=== PATIENT | male | born 1985 | race Hispanic/Latino ===

== ENCOUNTER 2016-06-28 22:57 | Emergency (ER) | payer MEDICAID ==
[2016-06-28 22:57] VITALS: BMI 44.7
== END 2016-06-29 01:06 | disposition left against medical advice (07) ==
LOC: ED 22:57
DX: Z02.89 Encounter for other administrative examinations (principal)

== ENCOUNTER 2016-08-29 09:45 | Emergency (ER) | payer MEDICAID ==
[2016-08-29 09:45] VITALS: BMI 44.7
[2016-08-29 09:56] VITALS: BP 146/87; PULSE 77; RESP 16; TEMP 97.9; O2SAT 98
--- NOTE | 2016-08-29 10:35 | ED PDOC ---
Arrival/HPI - General Historian: Patient - History of Present Illness Time/Duration: Other (3 days) Quality: Aching Severity Level: 3 - General Chief Complaint: Upper Extremity Problem/Injury Time Seen by Provider: 08/29/16 09:58 - History of Present Illness Narrative History of Present Illness (Text): 08/29/16 10:51 31yr old male presents today with left wrist pain. pt states 3 days ago he was putting things into a machine at work and developed wrist pain. denies numbness , weakness, or tingling in the extremity. no fever/chills. no medications taken for pain. pt states he has a prior hx of wrist fracture. pt c/o pain located over the ulnar styloid. pt denies numbness, weakness, tingling in the extremity. no other complaints. (Clarisa Chau) Past Medical History - Provider Review Nursing Documentation Reviewed: Yes - Travel History Have you recently traveled outside [place] w/in the past 3 mons?: No - Past History Past History: No Previous - Infectious Disease Hx of Infectious Diseases: None - Tetanus Immunization Tetanus Immunization: Unknown - Past Medical History Past Medical History: No Previous - Musculoskeletal/Rheumatological Hx Musculoskeletal Disorders: Yes (R knee sx) Hx Falls: No - Psychiatric Hx Depression: No Hx Substance Use: Yes (marijuana) - Surgical History Hx Orthopedic Surgery: Yes (right knee x 2.) Other/Comment: recent miniscus/acl done in september 2015 - Anesthesia Hx Anesthesia: Yes Hx Anesthesia Reactions: No - Suicidal Assessment Feels Threatened In Home Enviroment: No Family/Social History - Physician Review Nursing Documentation Reviewed: Yes Family/Social History: Unknown Family HX Smoking Status: Light Smoker < 10 Cigarettes Daily Hx Alcohol Use: Yes (occasional) Hx Substance Use: Yes (marijuana) Substance used: "I SMOKE WEED ONCE A MONTH" Hx Substance Use Treatment: No Allergies/Home Meds Allergies/Adverse Reactions: Allergies No Known Allergies Allergy (Verified 08/29/16 09:52) Review of Systems - Review of Systems Constitutional: absent: Fatigue, Fevers Respiratory: absent: SOB, Cough Cardiovascular: absent: Chest Pain, Palpitations Gastrointestinal: absent: Abdominal Pain, Nausea, Vomiting Genitourinary Male: absent: Dysuria Musculoskeletal: Arthralgias Skin: absent: Rash, Pruritis Neurological: absent: Headache, Dizziness Psychiatric: absent: Anxiety, Depression Physical Exam Vital Signs Reviewed: Yes Temperature: Afebrile Blood Pressure: Normal Pulse: Regular Respiratory Rate: Normal Appearance: Positive for: Well-Appearing, Non-Toxic, Comfortable Pain Distress: None Mental Status: Positive for: Alert and Oriented X 3 - Systems Exam Head: Present: Atraumatic Neck: Present: Normal Range of Motion Respiratory/Chest: Present: Clear to Auscultation, Good Air Exchange. No: Respiratory Distress, Accessory Muscle Use Cardiovascular: Present: Regular Rate and Rhythm, Normal S1, S2. No: Murmurs Back: Present: Normal Inspection Upper Extremity: Present: Normal ROM, NORMAL PULSES, Tenderness (left wrist; + ttp over ulnar styloid; no edema, no erythema; no ecchymosis; sensation and distal pulses intact; no snuff box tenderness. ), Neurovascularly Intact, Capillary Refill < 2s. No: Swelling, Erythema, Deformity Neurological: Present: GCS=15, Speech Normal Skin: Present: Warm, Dry, Normal Color. No: Rashes Psychiatric: Present: Alert, Oriented x 3 Medical Decision Making ED Course and Treatment: 08/29/16 10:56 pt c/o left wrist pain x 3 days. toradol given for pain xray left wrist; no fracture velcro wrist splint applied discussed all results in depth with patient; advised f/u with orthopedist within the next 2 days. advised immediate return if symptoms worsen,persist or if new symptoms develop. pt verbalized understanding of d/c instructions and need for immediate f/u. impression ;wrist pain motrin every 6 hours as needed for pain use wrist splint follow up with the orthopedist within the next 2 days return if symptoms worsen,persist or if new symptoms develop. (Clarisa Chau) I was available for consultation during PA evaluation. The chart was reviewed by me, and I agree with disposition. The documented history was done by the physician asphalt paving foreman. The documented physical exam was done by the physician asphalt paving foreman. The documented procedures were done by the physician asphalt paving foreman. ( Emerson Reyes) - RAD Interpretation Radiology Orders: 08/29/16 09:58 WRIST, LEFT 3 VIEWS [RAD] Stat - Medication Orders Current Medication Orders: Discontinued Medications Ketorolac Tromethamine (Toradol) 60 mg IM STAT STA Stop: 08/29/16 09:59 Last Admin: 08/29/16 10:33 Dose: 60 mg Disposition/Present on Arrival - Present on Arrival Any Indicators Present on Arrival: No History of DVT/PE: No History of Uncontrolled Diabetes: No Urinary Catheter: No History of Decub. Ulcer: No History Surgical Site Infection Following: None - Disposition Have Diagnosis and Disposition been Completed?: Yes Disposition Time: 10:50 Patient Plan: Discharge - Disposition Diagnosis: Wrist pain Disposition: HOME/ ROUTINE Condition: GOOD Discharge Instructions (ExitCare): Wrist Injury (ED) Additional Instructions: motrin every 6 hours as needed for pain Use wrist splint follow up with the orthopedist within the next 2 days return if symptoms worsen,persist or if new symptoms develop. Prescriptions: Ibuprofen [Motrin] 600 mg PO Q6H PRN #20 tab PRN Reason: pain/fever reduction Referrals: Yunier Cee MD [Staff Provider] - Follow up with primary [facility] [Outside] - Follow up with primary Forms: WORK NOTE
--- NOTE | 2016-08-29 10:56 | RAD ---
PROCEDURE: Left Wrist Radiographs. HISTORY: wrist pain COMPARISON: None. FINDINGS: BONES: Normal. No fracture. JOINTS: Normal. No dislocation. SOFT TISSUES: There is a smooth calcification adjacent to the ulnar styloid. This probably represents a secondary ossification center. OTHER FINDINGS: None. IMPRESSION: No acute findings
== END 2016-08-29 11:09 | disposition home or self-care (01) ==
LOC: ED 09:45
DX: M25.532 Pain in left wrist (principal)
CPT/HCPCS: 73110; 96372; 99283; J1885

== ENCOUNTER 2017-02-20 12:27 | Emergency (ER) | payer MEDICAID, OTHER ==
[2017-02-20 12:27] VITALS: BMI 44.7
[2017-02-20] MEDS ORDERED: Lactated Ringer's 1,000 ML in Lactated Ringer's 1,000 ML IV STA (12:49)
[2017-02-20] MEDS ORDERED: Iohexol 240 (50 ml) ONE (12:53)
[2017-02-20 13:41] LABS: BASO # 0.04 K/mm3 (0.0-2.0); BASO % 0.5 % (0.0-3.0); EOS # 0.3 (0.0-0.7); EOS % 4.3 % (1.5-5.0); GRAN # 4.65 (1.4-6.5); GRAN % 62.1 % (50.0-68.0); HEMATOCRIT 42.1 % (42.0-52.0); LYMPH # 1.9 (1.2-3.4); LYMPH % 24.9 % (22.0-35.0); MEAN CELL VOLUME 89.6 fl (80.0-105.0); MEAN CORPUSCULAR HEMOGLOBIN 30.2 pg (25.0-35.0); MEAN CORPUSCULAR HGB CONC 33.7 g/dl (31.0-37.0); MEAN PLATELET VOLUME 11.7 fl (7.0-11.0); MONO # 0.6 (0.1-0.6); MONO % 8.2 % (1.0-6.0); RED CELL DISTRIBUTION WIDTH 13.8 % (11.5-14.5); WHITE BLOOD COUNT 7.5 10^3/ul (4.5-11.0)
[2017-02-20 14:26] LABS: LIPASE 13 U/L (23-300)
[2017-02-20 14:47] LABS: AMYLASE < 30 U/L (35-125); BILIRUBIN,TOTAL 0.5 mg/dL (0.2-1.3); BLOOD UREA NITROGEN 13 mg/dL (7-21); CALCIUM 9.2 mg/dL (8.4-10.5); CHLORIDE 108 mmol/L (98-107); GFR AFRICAN-AMERICAN > 60; GLUCOSE,RANDOM 94 mg/dL (70-110); TOTAL PROTEIN 7.2 g/dL (5.8-8.3)
[2017-02-20 14:49] LABS: ALB/GLOB RATIO 1.4 (1.1-1.8); ALKALINE PHOSPHATASE 91 U/L (38-126); ALT/SGPT 42 U/L (7-56); AST/SGOT 20 U/L (17-59); CARBON DIOXIDE 26 mmol/L (21-33)
--- NOTE | 2017-02-20 14:51 | ED PDOC ---
Arrival/HPI - General Chief Complaint: GI Problem Time Seen by Provider: 02/20/17 12:29 Historian: Patient - History of Present Illness Narrative History of Present Illness (Text): 02/20/17 12:46 A 31 year old male presents to the emergency department complaining of left- side abdominal pain and vomiting. Patient reports positive nausea and started experiencing fever today. Notes taking Ibuprofen for symptoms. Patient denies any hematuria, dysuria, bloody stool, or any other complaints. No recent travel. PMD: Dr. Sanchez Past Medical History - Provider Review Nursing Documentation Reviewed: Yes - Past History Past History: No Previous - Infectious Disease Hx of Infectious Diseases: None - Tetanus Immunization Tetanus Immunization: Unknown - Past Medical History Past Medical History: No Previous - Musculoskeletal/Rheumatological Hx Musculoskeletal Disorders: Yes (R knee sx) Hx Falls: No - Psychiatric Hx Depression: No Hx Substance Use: Yes (marijuana) - Surgical History Hx Orthopedic Surgery: Yes (right knee x 2.) Other/Comment: recent miniscus/acl done in september 2015 - Anesthesia Hx Anesthesia: Yes Hx Anesthesia Reactions: No - Suicidal Assessment Feels Threatened In Home Enviroment: No Family/Social History - Physician Review Nursing Documentation Reviewed: Yes Family/Social History: No Known Family HX Smoking Status: Light Smoker < 10 Cigarettes Daily Hx Alcohol Use: Yes (occasional) Hx Substance Use: Yes (marijuana) Substance used: "I SMOKE WEED ONCE A MONTH" Hx Substance Use Treatment: No Allergies/Home Meds Allergies/Adverse Reactions: Allergies No Known Allergies Allergy (Verified 02/20/17 12:31) Home Medications: Home Meds Medication Instructions Recorded Confirmed No Known Home Med 02/20/17 02/20/17 Review of Systems - Physician Review All systems were reviewed & negative as marked: Yes - Review of Systems Constitutional: Fevers (started today) Gastrointestinal: Abdominal Pain (left side), Nausea, Vomiting. absent: Stool Changes (no bloody stool) Genitourinary Male: absent: Dysuria, Hematuria Physical Exam Vital Signs Reviewed: Yes Vital Signs Temp Pulse Resp BP Pulse Ox 02/20/17 17:40 98.8 F 72 20 136/84 99 02/20/17 17:05 69 18 128/69 98 02/20/17 16:00 75 18 135/71 98 02/20/17 13:47 78 18 138/78 98 02/20/17 12:38 97.7 F 81 18 143/81 97 02/20/17 12:32 97.7 F 81 19 143/81 96 Temperature: Afebrile Blood Pressure: Normal Pulse: Regular Respiratory Rate: Normal Appearance: Positive for: Other (obese) Pain Distress: None Mental Status: Positive for: Alert and Oriented X 3 - Systems Exam Head: Present: Atraumatic, Normocephalic Pupils: Present: PERRL Extroacular Muscles: Present: EOMI Conjunctiva: Present: Normal Mouth: Present: Moist Mucous Membranes Neck: Present: Normal Range of Motion Respiratory/Chest: Present: Clear to Auscultation, Good Air Exchange. No: Respiratory Distress, Accessory Muscle Use Cardiovascular: Present: Regular Rate and Rhythm, Normal S1, S2. No: Murmurs Abdomen: Present: Other (left sided abdominal pain) Back: Present: Normal Inspection Upper Extremity: Present: Normal Inspection. No: Cyanosis, Edema Lower Extremity: Present: Normal Inspection. No: Edema Neurological: Present: GCS=15, CN II-XII Intact, Speech Normal Skin: Present: Warm, Dry, Normal Color. No: Rashes Psychiatric: Present: Alert, Oriented x 3, Normal Insight, Normal Concentration Medical Decision Making ED Course and Treatment: 02/20/17 12:49 Impression: 31 year old male with left-side abdominal pain, nausea, and vomiting. Physical exam shows patient appears obese and has left-side abdominal pain. Plan: -- Abd/Pelvis CT -- Labs -- Pepcid -- Lactated Ringer's -- Zofran -- Urinalysis -- Urine Culture -- Reassess and disposition Prior Visits: Notes and results from previous visits were reviewed. Patient was last seen in the emergency department on 08/29/2016 for left wrist pain. Patient was d/c home. Progress Notes: - Lab Interpretations Lab Results: 02/20/17 13:30 02/20/17 13:30 Lab Results 02/20/17 15:00: Urine Color Yellow, Urine Appearance Clear, Urine pH 6.0, Ur Specific [place] 1.020, Urine Protein Negative, Urine Glucose (UA) Negative, Urine Ketones Negative, Urine Blood Negative, Urine Nitrate Negative, Urine Bilirubin Negative, Urine Urobilinogen 0.2, Ur Leukocyte Esterase Negative 02/20/17 13:30: Sodium 144, Potassium 3.9, Chloride 108 H, Carbon Dioxide 26, Anion Gap 14, BUN 13, Creatinine 0.7 L, Est GFR ( Amer) > 60, Est GFR ( Non-Af Amer) > 60, Random Glucose 94, Calcium 9.2, Total Bilirubin 0.5, AST 20, ALT 42, Alkaline Phosphatase 91, Total Protein 7.2, Albumin 4.2, Globulin 3.0, Albumin/Globulin Ratio 1.4, Amylase < 30 L, Lipase 13 L 02/20/17 13:30: WBC 7.5, RBC 4.70, Hgb 14.2, Hct 42.1, MCV 89.6, MCH 30.2, MCHC 33.7, RDW 13.8, Plt Count 176, MPV 11.7 H, Gran % 62.1, Lymph % (Auto) 24.9, [place] % (Auto) 8.2 H, Eos % (Auto) 4.3, Baso % (Auto) 0.5, Gran # 4.65, Lymph # 1.9, Greene # 0.6, Eos # 0.3, Baso # 0.04 I have reviewed the lab results: Yes - RAD Interpretation Radiology Orders: 02/20/17 12:49 ABD PELVIS PO & IV CONTRAST [CT] Stat - Medication Orders Current Medication Orders: Discontinued Medications Famotidine (Pepcid) 20 mg IVP STAT STA Stop: 02/20/17 12:50 Last Admin: 02/20/17 13:30 Dose: 20 mg IVP Administration Document 02/20/17 13:30 [place] (Rec: 02/20/17 13:30 [place] [id number]) Charges for Administration # of IVP Administrations 1 Lactated Ringer's 1,000 ml/ (Lactated Ringer's) 2,000 mls @ 1,000 mls/hr IV BOLUS STA Stop: 02/20/17 14:18 Last Admin: 02/20/17 13:30 Dose: 1,000 mls/hr eMAR Start Stop Document 02/20/17 13:30 [place] (Rec: 02/20/17 13:30 [place] [id number]) Intravenous Solution Start Date 02/20/17 Start Time 13:30 Ondansetron HCl (Zofran Inj) 4 mg IVP STAT STA Stop: 02/20/17 12:50 Last Admin: 11/29/17 13:30 Dose: 4 mg IVP Administration Document 02/20/17 13:30 [place] (Rec: 02/20/17 13:30 [id number] Charges for Administration # of IVP Administrations 1 - Scribe Statement The provider has reviewed the documentation as recorded by the Jane Wing Provider Nasraibe Attestation: All medical record entries made by the Scribe were at my direction and personally dictated by me. I have reviewed the chart and agree that the record accurately reflects my personal performance of the history, physical exam, medical decision making, and the department course for this patient. I have also personally directed, reviewed, and agree with the discharge instructions and disposition. Disposition/Present on Arrival - Present on Arrival Any Indicators Present on Arrival: No History of DVT/PE: No History of Uncontrolled Diabetes: No Urinary Catheter: No History of Decub. Ulcer: No History Surgical Site Infection Following: None - Disposition Have Diagnosis and Disposition been Completed?: Yes Diagnosis: Abdominal pain Disposition: HOME/ ROUTINE Disposition Time: 17:30 Condition: GOOD Discharge Instructions (ExitCare): Abdominal Pain (ED) Additional Instructions: Thank you for letting us take care of you today. The emergency medical care you received today was directed at your acute symptoms. If you were prescribed any medication, please fill it and take as directed. It may take several days for your symptoms to resolve. Return to the Emergency Department if your symptoms worsen, do not improve, or if you have any other problems. Please contact your doctor or call one of the physicians/clinics you have been referred to that are listed on the Patient Visit Information form that is included in your discharge packet. Bring any paperwork you were given at discharge with you along with any medications you are taking to your follow up visit. Our treatment cannot replace ongoing medical care by a primary care provider (PCP) outside of the emergency department. Thank you for allowing the [facility] team to be part of your care today. Follow up with your doctor or the clinic in 2-3 days for re-evaluation and further management. Referrals: [facility] [Outside] - Follow up with primary [facility] [Outside] - Follow up with primary Forms: [employer] (Afghan)
[2017-02-20 15:12] LABS: URINE BILIRUBIN NEGATIVE (NEGATIVE); URINE BLOOD NEGATIVE (NEGATIVE); URINE GLUCOSE (UA) NEGATIVE (NEGATIVE); URINE KETONE NEGATIVE (NEGATIVE); URINE LEUKOCYTE ESTERASE NEGATIVE Leu/uL (NEGATIVE); URINE PROTEIN NEGATIVE mg/dL (<30 mg/dL); URINE UROBILINOGEN 0.2 E.U./dL (<1 E.U./dL)
[2017-02-20 15:19] LABS: URINE APPEARANCE CLEAR (CLEAR); URINE COLOR YELLOW (YELLOW)
[2017-02-20] MEDS ORDERED: Iohexol 350 MG/100 ML VIAL ONE (15:38)
[2017-02-20 16:08] LABS: POTASSIUM 3.9 mmol/L (3.6-5.0); SODIUM 144 mmol/L (132-148)
--- NOTE | 2017-02-20 17:33 | CT ---
PROCEDURE: CT Abdomen and Pelvis with contrast HISTORY: left-sided abdominal pain COMPARISON: None. TECHNIQUE: CT scan of the abdomen and pelvis was performed after intravenous administration of contrast. Oral contrast was administered. Coronal and sagittal reformatted images were obtained. Contrast dose: 100 mL Omnipaque 350 Radiation dose: Total exam DLP = 1925.94 mGy-cm. This CT exam was performed using one or more of the following dose reduction techniques: Automated exposure control, adjustment of the mA and/or kV according to patient size, and/or use of iterative reconstruction technique. FINDINGS: LOWER THORAX: The lung bases are clear. LIVER: The liver is normal in size and there is diffuse fatty infiltration. No gross lesion or ductal dilatation. GALLBLADDER AND BILE DUCTS: There are no calcified gallstones. PANCREAS: Normal in size with homogeneous enhancement. No gross lesion or ductal dilatation. SPLEEN: There is borderline splenomegaly. There are innumerable subcentimeter low-attenuation lesions in the spleen. ADRENALS: No discrete nodules. KIDNEYS AND URETERS: Normal in size with homogeneous enhancement. No hydronephrosis. No solid mass. VASCULATURE: No aortic aneurysm. BOWEL: The small bowel loops are normal in caliber. The colon is unremarkable. No bowel dilatation or obstruction. APPENDIX: Normal appendix. PERITONEUM: No free fluid. No free air. LYMPH NODES: No enlarged lymph nodes. BLADDER: Partially decompressed. Urachal remnant is identified. REPRODUCTIVE: Unremarkable. BONES: No acute fracture. Within normal limits for the patient's age. OTHER FINDINGS: None. IMPRESSION: Borderline splenomegaly. Innumerable subcentimeter lesions in the spleen, nonspecific. The differential considerations include abscesses, granulomatous disease, lymphoma and metastasis.
[2017-02-20 17:41] VITALS: BP 136/84; PULSE 72; RESP 20; TEMP 98.8; O2SAT 99
== END 2017-02-20 17:56 | disposition home or self-care (01) ==
LOC: ED 12:27
DX: R10.9 Unspecified abdominal pain (principal); F17.210 Nicotine dependence, cigarettes, uncomplicated
CPT/HCPCS: 74177; 80053; 81003; 82150; 83690; 85025; 87086; 96374; 96375; 99284; J2405; J7120; Q9966; Q9967

== ENCOUNTER 2017-08-23 05:35 | Inpatient (IN) | payer MEDICAID, OTHER ==
[2017-08-23] MEDS ORDERED: Piperacillin/Tazobact 3.375 gm 100 ML IVPB STA (06:32)
[2017-08-23] MEDS ORDERED: Sodium Chloride 0.9% 1,000 ML IV STA (06:32)
[2017-08-23] MEDS ORDERED: Vancomycin 1gm in NS 250ml 1 GM/250 ML BAG IVPB STA (06:32)
--- NOTE | 2017-08-23 06:36 | ED PDOC ---
Arrival/HPI - General Chief Complaint: Lower Extremity Problem/Injury Time Seen by Provider: 08/23/17 05:54 Historian: Patient - History of Present Illness Narrative History of Present Illness (Text): 08/23/17 06:29 32 year old male, with no significant past medical history, presents to the emergency department complaining of worsening cellulites to the left knee radiates down to the ankle. Patient reports he was in the [facility] stands alone ER and was given antibiotics with no relief. Patient has a drawn lacey around this cellulites wound which is the same size, but is more red and painful. Patient does not know the name of the antibiotics. Patient states he feels sick and reports nausea, but denies any fever, chills, chest pain, shortness of breath, vomiting, diarrhea, urinary symptoms, back pain, neck pain, headache, dizziness , or any other complaints. PMD: Dr. Rothman Symptom Onset: Gradual Symptom Course: Worsening Activities at Onset: Light Context: Home Past Medical History - Provider Review Nursing Documentation Reviewed: Yes - Past History Past History: No Previous - Infectious Disease Hx of Infectious Diseases: None - Tetanus Immunization Tetanus Immunization: Unknown - Past Medical History Past Medical History: No Previous - Musculoskeletal/Rheumatological Hx Musculoskeletal Disorders: Yes (R knee sx) Hx Falls: No - Psychiatric Hx Depression: No Hx Substance Use: Yes (marijuana) - Surgical History Hx Orthopedic Surgery: Yes (hien acl knees) Other/Comment: recent miniscus/acl done in september 2015 - Anesthesia Hx Anesthesia: Yes Hx Anesthesia Reactions: No - Suicidal Assessment Feels Threatened In Home Enviroment: No Family/Social History - Physician Review Nursing Documentation Reviewed: Yes Family/Social History: No Known Family HX Smoking Status: Light Smoker < 10 Cigarettes Daily Hx Alcohol Use: Yes (occasional) Frequency of alcohol use: Socially Hx Substance Use: Yes (marijuana) Substance used: "I SMOKE WEED ONCE A MONTH" Hx Substance Use Treatment: No Allergies/Home Meds Allergies/Adverse Reactions: Allergies No Known Allergies Allergy (Verified 08/23/17 06:14) Home Medications: Home Meds Medication Instructions Recorded Confirmed Unobtainable 08/23/17 08/23/17 Review of Systems - Physician Review All systems were reviewed & negative as marked: Yes - Review of Systems Constitutional: absent: Fevers, Other (Chills) Respiratory: absent: SOB Cardiovascular: absent: Chest Pain Gastrointestinal: Nausea. absent: Abdominal Pain, Diarrhea, Vomiting Genitourinary Male: absent: Dysuria, Frequency, Hematuria Musculoskeletal: absent: Back Pain, Neck Pain Skin: Cellulitis (left knee down to ankle) Neurological: absent: Headache, Dizziness Physical Exam Vital Signs Reviewed: Yes Vital Signs Temp Pulse Resp BP Pulse Ox 08/23/17 06:16 99.6 F 81 18 137/76 97 Temperature: Afebrile Blood Pressure: Normal Pulse: Regular Respiratory Rate: Normal Appearance: Positive for: Well-Appearing, Non-Toxic, Comfortable Pain Distress: None Mental Status: Positive for: Alert and Oriented X 3 - Systems Exam Head: Present: Atraumatic, Normocephalic Pupils: Present: PERRL Extroacular Muscles: Present: EOMI Conjunctiva: Present: Normal Mouth: Present: Moist Mucous Membranes Neck: Present: Normal Range of Motion Respiratory/Chest: Present: Clear to Auscultation, Good Air Exchange. No: Respiratory Distress, Accessory Muscle Use Cardiovascular: Present: Regular Rate and Rhythm, Normal S1, S2. No: Murmurs Abdomen: No: Tenderness, Distention, Peritoneal Signs Back: Present: Normal Inspection Upper Extremity: Present: Normal Inspection. No: Cyanosis, Edema Lower Extremity: Present: Swelling, Erythema, Other (cellulites from knee to ankle anteriorly. Foot is spared. Warm, red, and swollen.). No: Edema Neurological: Present: GCS=15, CN II-XII Intact, Speech Normal Skin: Present: Warm, Dry, Normal Color. No: Rashes Psychiatric: Present: Alert, Oriented x 3, Normal Insight, Normal Concentration Medical Decision Making ED Course and Treatment: 08/23/17 06:39 Impression: 32 year old male presents complaining of worsening redness and pain from cellulites to the left knee to ankle anteriorly. Foot is spared. Plan: -- VBG -- Labs -- IV Fluids -- Blood Culture, Urine Culture -- Urinalysis -- Reassess and disposition Progress Notes: 08/23/17 07:[address] Rothman who is aware and agrees with the plan. Accepts patient into his service. - Lab Interpretations I have reviewed the lab results: Yes - Medication Orders Current Medication Orders: Sodium Chloride (Sodium Chloride 0.9%) 1,000 mls @ 999 mls/hr IV .Q1H1M STA Stop: 08/23/17 07:32 Vancomycin HCl (Vancomycin 1gm) 1 gm in 250 mls @ 167 mls/hr IVPB STAT STA PRN Reason: Protocol Stop: 08/23/17 08:01 Discontinued Medications Piperacillin Sod/Tazobactam Sod (Zosyn 3.375 In Ns 100ml) 100 mls @ 200 mls/hr IVPB STAT STA PRN Reason: Protocol Stop: 08/23/17 07:01 - Scribe Statement The provider has reviewed the documentation as recorded by the Jane Alexander Provider Scribe Attestation: All medical record entries made by the Scribjustin were at my direction and personally dictated by me. I have reviewed the chart and agree that the record accurately reflects my personal performance of the history, physical exam, medical decision making, and the department course for this patient. I have also personally directed, reviewed, and agree with the discharge instructions and disposition. Disposition/Present on Arrival - Present on Arrival History of DVT/PE: No History of Uncontrolled Diabetes: No Urinary Catheter: No History of Decub. Ulcer: No History Surgical Site Infection Following: None - Disposition Forms: [employer] (Swazi)
[2017-08-23 07:11] LABS: BASO # 0.03 K/mm3 (0.0-2.0); BASO % 0.2 % (0.0-3.0); EOS % 0.1 % (1.5-5.0); GRAN # 9.56 (1.4-6.5); GRAN % 76.5 % (50.0-68.0); HEMOGLOBIN 13.5 g/dL (14.0-18.0); LYMPH # 1.7 (1.2-3.4); LYMPH % 13.5 % (22.0-35.0); MEAN CELL VOLUME 87.3 fl (80.0-105.0); MEAN CORPUSCULAR HEMOGLOBIN 30.1 pg (25.0-35.0); MEAN CORPUSCULAR HGB CONC 34.5 g/dl (31.0-37.0); MEAN PLATELET VOLUME 11.6 fl (7.0-11.0); MONO # 1.2 (0.1-0.6); MONO % 9.7 % (1.0-6.0); RBC 4.48 10^6/uL (3.5-6.1); RED CELL DISTRIBUTION WIDTH 13.7 % (11.5-14.5); WHITE BLOOD COUNT 12.5 10^3/ul (4.5-11.0)
[2017-08-23 07:26] LABS: ALB/GLOB RATIO 1.3 (1.1-1.8); ALBUMIN 4.2 g/dL (3.0-4.8); ALT/SGPT 29 U/L (7-56); AST/SGOT 17 U/L (17-59); BLOOD UREA NITROGEN 10 mg/dL (7-21); CALCIUM 9.2 mg/dL (8.4-10.5); GFR AFRICAN-AMERICAN > 60; GFR NON-AFRICAN AMERICAN > 60; INR 1.3 (0.93-1.08)
[2017-08-23 07:40] LABS: VENOUS BLOOD GAS BASE EXCESS 0.3 mmol/L (0.0-2.0); VENOUS BLOOD GAS PO2 77 mm/Hg (30-55); VENOUS BLOOD PH 7.39 (7.32-7.43)
--- NOTE | 2017-08-23 09:14 | ED PDOC ---
ED Additional Note - Physician Additional Note Physician Additional Note: 8:45am - Dr Rothman spoke to me regarding patient Mr Reid Brock; Dr Rothman states Dr Olson had mistakenly admitted patient to his service wrongly and would like pt to be removed from his admission list; pt should be admitted under the hospitalists 8:55am - I spoke to hospitalists no call, Dr Jenkins, made aware, agrees with admission I did not evaluate patient since patient had already been out of the emergency department after my arrival pt was never signed out to me as well from previous emergency department/ overnight attending
--- NOTE | 2017-08-23 11:17 | CP.PCM.HP ---
<Rio Ramos - Last Filed: 08/23/17 14:06> History of Present Illness - History of Present Illness History of Present Illness: 32 year old male with PMH of cellulitis of the left leg in 2016 complaining of swelling and redness on the anterior aspect of left leg. Patient states he woke up yesterday and noticed the area of redness and warmth. Patient complained of having nausea, vomiting and chills but denied having fevers. He went to the [facility] urgent care center yesterday and was discharged with a prescription for keflex. Patient states that several days ago he visited a spa and used the jacuzzi. He realized that the last time he had similar symptoms and cellulitis it was also after visiting the same spa. He denies any animal bites or trauma to the leg. He also stated he had a headache this morning which has resolved. Patient denies any chest pain, shortness of breath, abdominal pain, diarrhea, dysuria, or any other complaints at this time. PMH: cellulitis PSH: ACL repair Allergies: denies Family: non contributory Social: one cigarrette every 2 months, one drink a month of alcohol, and once a month use of marijuana, denies any IV drug use Meds: none Present on Admission - Present on Admission Any Indicators Present on Admission: No Review of Systems - Constitutional Constitutional: Fatigue. absent: Chills, Fever, Weakness - EENT Eyes: absent: Change in Vision Nose/Mouth/Throat: absent: Nasal Congestion, Nasal Discharge - Cardiovascular Cardiovascular: absent: Chest Pain, Dyspnea - Respiratory Respiratory: absent: Cough - Gastrointestinal Gastrointestinal: absent: Abdominal Pain, Nausea, Vomiting - Integumentary Integumentary: Rash, Swelling - Neurological Neurological: Headaches. absent: Dizziness, Numbness, Vertigo, Weakness Past Patient History - Infectious Disease Hx of Infectious Diseases: None - Tetanus Immunizations Tetanus Immunization: Unknown - Past Social History Smoking Status: Light Smoker < 10 Cigarettes Daily - MUSCULOSKELETAL/RHEUMATOLOGICAL Hx Musculoskeletal Disorders: Yes (R knee sx) Hx Falls: No - PSYCHIATRIC Hx Depression: No Hx Substance Use: Yes (marijuana) - SURGICAL HISTORY Hx Orthopedic Surgery: Yes (hien acl knees) Other/Comment: recent miniscus/acl done in september 2015 - ANESTHESIA Hx Anesthesia: Yes Hx Anesthesia Reactions: No Meds Allergies/Adverse Reactions: Allergies Allergy/AdvReac Type Severity Reaction Status Date / Time No Known Allergies Allergy Verified 08/23/17 06:14 Physical Exam - Constitutional Appears: Well, Non-toxic, No Acute Distress - Head Exam Head Exam: ATRAUMATIC, NORMAL INSPECTION, NORMOCEPHALIC - Eye Exam Eye Exam: EOMI, Normal appearance, PERRL - ENT Exam ENT Exam: Mucous Membranes Moist - Respiratory Exam Respiratory Exam: Clear to Auscultation Bilateral, NORMAL BREATHING PATTERN - Cardiovascular Exam Cardiovascular Exam: REGULAR RHYTHM, +S1, +S2 - GI/Abdominal Exam GI & Abdominal Exam: Normal Bowel Sounds, Soft. absent: Tenderness - Extremities Exam Extremities exam: Positive for: tenderness, pedal pulses present. Negative for : pedal edema Additional comments: large area of warmth an erythema on anterior aspect of left lower leg - Neurological Exam Neurological exam: Alert, Oriented x3 - Skin Skin Exam: Rash, Warm Results - Vital Signs Recent Vital Signs: Last Vital Signs Temp 98.2 F 08/23/17 08:06 Pulse 88 08/23/17 08:06 Resp 18 08/23/17 08:06 BP 138/86 08/23/17 08:06 Pulse Ox 100 08/23/17 08:06 - Labs Result Diagrams: 08/23/17 06:54 08/23/17 06:54 Labs: Laboratory Results - last 24 hr 08/23/17 08/23/17 08/23/17 06:54 06:54 06:54 WBC 12.5 H D RBC 4.48 Hgb 13.5 L Hct 39.1 L MCV 87.3 MCH 30.1 MCHC 34.5 RDW 13.7 Plt Count 167 MPV 11.6 H Gran % 76.5 H Lymph % (Auto) 13.5 L [place] % (Auto) 9.7 H Eos % (Auto) 0.1 L Baso % (Auto) 0.2 Gran # 9.56 H Lymph # (Auto) 1.7 [place] # (Auto) 1.2 H Eos # (Auto) 0.0 Baso # (Auto) 0.03 PT 15.0 H INR 1.30 H pO2 VBG pH VBG pCO2 VBG HCO3 VBG Total CO2 VBG O2 Sat (Calc) VBG Base Excess VBG Potassium Glucose Lactate FiO2 Sodium 142 Potassium 3.6 Chloride 105 Carbon Dioxide 24 Anion Gap 17 BUN 10 Creatinine 0.7 L Est GFR ( Amer) > 60 Est GFR (Non-Af Amer) > 60 Random Glucose 108 Calcium 9.2 Total Bilirubin 0.4 AST 17 ALT 29 Alkaline Phosphatase 87 Total Protein 7.3 Albumin 4.2 Globulin 3.1 Albumin/Globulin Ratio 1.3 Venous Blood Potassium 08/23/17 07:30 WBC RBC Hgb Hct MCV MCH MCHC RDW Plt Count MPV Gran % Lymph % (Auto) [place] % (Auto) Eos % (Auto) Baso % (Auto) Gran # Lymph # (Auto) [place] # (Auto) Eos # (Auto) Baso # (Auto) PT INR pO2 77 H VBG pH 7.39 VBG pCO2 42.0 VBG HCO3 25.4 VBG Total CO2 26.7 VBG O2 Sat (Calc) 97.7 H VBG Base Excess 0.3 VBG Potassium 3.3 L Glucose 109 Lactate 0.6 L FiO2 21.0 Sodium 138.0 Potassium Chloride 108.0 H Carbon Dioxide Anion Gap BUN Creatinine Est GFR ( Amer) Est GFR (Non-Af Amer) Random Glucose Calcium Total Bilirubin AST ALT Alkaline Phosphatase Total Protein Albumin Globulin Albumin/Globulin Ratio Venous Blood Potassium 3.3 L Assessment & Plan - Assessment and Plan (Free Text) Assessment: 32 year old male with PMH of cellulitis of the left leg in 2016 complaining of swelling and redness on the anterior aspect of left leg. Patient is being treated for cellulitis of the left lower leg. Plan: 1. Cellulitis Left Lower Extremity -leukocytosis -afebrile -blood cultures, urine cultures pending -ID consulted, follow recs -Cefepime and Linzolid -HIV test pending Prophylaxis -Heparin SC -protonix <Maira Jenkins - Last Filed: 08/23/17 15:44> Results - Vital Signs Recent Vital Signs: Last Vital Signs Temp 98.2 F 08/23/17 14:00 Pulse 68 08/23/17 14:00 Resp 18 08/23/17 14:00 BP 132/91 H 08/23/17 14:00 Pulse Ox 100 08/23/17 14:00 - Labs Result Diagrams: 08/23/17 06:54 08/23/17 06:54 Labs: Laboratory Results - last 24 hr 06/01/18 06/01/18 06/01/18 06:54 06:54 06:54 WBC 12.5 H D RBC 4.48 Hgb 13.5 L Hct 39.1 L MCV 87.3 MCH 30.1 MCHC 34.5 RDW 13.7 Plt Count 167 MPV 11.6 H Gran % 76.5 H Lymph % (Auto) 13.5 L [place] % (Auto) 9.7 H Eos % (Auto) 0.1 L Baso % (Auto) 0.2 Gran # 9.56 H Lymph # (Auto) 1.7 [place] # (Auto) 1.2 H Eos # (Auto) 0.0 Baso # (Auto) 0.03 PT 15.0 H INR 1.30 H pO2 VBG pH VBG pCO2 VBG HCO3 VBG Total CO2 VBG O2 Sat (Calc) VBG Base Excess VBG Potassium Glucose Lactate FiO2 Sodium 142 Potassium 3.6 Chloride 105 Carbon Dioxide 24 Anion Gap 17 BUN 10 Creatinine 0.7 L Est GFR ( Amer) > 60 Est GFR (Non-Af Amer) > 60 Random Glucose 108 Calcium 9.2 Total Bilirubin 0.4 AST 17 ALT 29 Alkaline Phosphatase 87 Total Protein 7.3 Albumin 4.2 Globulin 3.1 Albumin/Globulin Ratio 1.3 Venous Blood Potassium 08/23/17 07:30 WBC RBC Hgb Hct MCV MCH MCHC RDW Plt Count MPV Gran % Lymph % (Auto) [place] % (Auto) Eos % (Auto) Baso % (Auto) Gran # Lymph # (Auto) [place] # (Auto) Eos # (Auto) Baso # (Auto) PT INR pO2 77 H VBG pH 7.39 VBG pCO2 42.0 VBG HCO3 25.4 VBG Total CO2 26.7 VBG O2 Sat (Calc) 97.7 H VBG Base Excess 0.3 VBG Potassium 3.3 L Glucose 109 Lactate 0.6 L FiO2 21.0 Sodium 138.0 Potassium Chloride 108.0 H Carbon Dioxide Anion Gap BUN Creatinine Est GFR ( Amer) Est GFR (Non-Af Amer) Random Glucose Calcium Total Bilirubin AST ALT Alkaline Phosphatase Total Protein Albumin Globulin Albumin/Globulin Ratio Venous Blood Potassium 3.3 L Attending/Attestation - Attestation I have personally seen and examined this patient.: Yes I have fully participated in the care of the patient.: Yes I have reviewed all pertinent clinical information: Yes Notes (Text): 08/23/17 15:42 Medical record note made by the resident after discussion with my direction and input after the patient was personally seen and examined by me. I have reviewed the chart and agree that the record accurately reflects by personal performance of the history, physical exam, data review, and medical decision-making, in the course for the patient. I have also personally directed the plan of care. 32 year old male with recurrent cellulitis of the left leg on IV cefepime and Zyvo as per ID, We will follow up cultures. Management plan was discussed in detail with patient. Education was provided.
[2017-08-23 11:31] VITALS: BMI 41.3
[2017-08-23] MEDS: Linezolid 600 mg in D5W 300 ml 600 MG/300 ML BAG IVPB SCH ×2 (11:32→23:30)
--- NOTE | 2017-08-23 13:51 | CP.PCM.CON ---
History of Present Illness - History of Present Illness History of Present Illness: 32 year old male with PMH of cellulitis of the left leg in 2016, morbid obesity with BMI 41 came in to [facility] complaining of left leg swelling on the anterior portion which started about 2 days ago. He was also having nausea and vomiting, generalized weakness but denies having fevers. He went to the [facility] urgent care center yesterday morning and was given Keflex. About 3-4 days ago the patient visited a spa and used the jacuzzi there and soaked in it. As per patient, his cellulitis in 2016 also happened several days after visiting the same spa. He denies animal contacts, no specific trauma to the left leg, no headache or dizziness, no abdominal pain, no diarrhea, no dysuria, no cough or colds. Infectious Diseases consult is requested to further evaluate and manage. Review of Systems - Review of Systems All systems: reviewed and no additional remarkable complaints except (as per HPI ) Past Patient History - Infectious Disease Hx of Infectious Diseases: None - Tetanus Immunizations Tetanus Immunization: Unknown - Past Social History Smoking Status: Light Smoker < 10 Cigarettes Daily - MUSCULOSKELETAL/RHEUMATOLOGICAL Hx Musculoskeletal Disorders: Yes (R knee sx) Hx Falls: No - PSYCHIATRIC Hx Depression: No Hx Substance Use: Yes (marijuana) - SURGICAL HISTORY Hx Orthopedic Surgery: Yes (hien acl knees) Other/Comment: recent miniscus/acl done in september 2015 - ANESTHESIA Hx Anesthesia: Yes Hx Anesthesia Reactions: No Meds Allergies/Adverse Reactions: Allergies Allergy/AdvReac Type Severity Reaction Status Date / Time No Known Allergies Allergy Verified 08/23/17 06:14 - Medications Medications: Current Medications Linezolid (Zyvox 600mg/300ml D5w) 600 mg in 300 mls @ 200 mls/hr IVPB Q12 AHMET PRN Reason: Protocol Stop: 08/30/17 10:01 Physical Exam - Constitutional Appears: Non-toxic - Head Exam Head Exam: NORMAL INSPECTION - ENT Exam ENT Exam: Mucous Membranes Moist - Neck Exam Neck exam: Negative for: Lymphadenopathy, Meningismus - Respiratory Exam Respiratory Exam: absent: Rales, Rhonchi - Cardiovascular Exam Cardiovascular Exam: +S1, +S2 - GI/Abdominal Exam GI & Abdominal Exam: Soft. absent: Tenderness - Extremities Exam Additional comments: left leg anteriorly with redness and swelling, with some tenderness, no streaking noted towards the groin, no fluctuance Results - Vital Signs Recent Vital Signs: Last Vital Signs Temp 98.2 F 08/23/17 08:06 Pulse 88 08/23/17 08:06 Resp 18 08/23/17 08:06 BP 138/86 08/23/17 08:06 Pulse Ox 100 08/23/17 08:06 - Labs Result Diagrams: 08/23/17 06:54 08/23/17 06:54 Labs: Laboratory Results - last 24 hr 08/23/17 08/23/17 08/23/17 06:54 06:54 06:54 WBC 12.5 H D RBC 4.48 Hgb 13.5 L Hct 39.1 L MCV 87.3 MCH 30.1 MCHC 34.5 RDW 13.7 Plt Count 167 MPV 11.6 H Gran % 76.5 H Lymph % (Auto) 13.5 L [place] % (Auto) 9.7 H Eos % (Auto) 0.1 L Baso % (Auto) 0.2 Gran # 9.56 H Lymph # (Auto) 1.7 [place] # (Auto) 1.2 H Eos # (Auto) 0.0 Baso # (Auto) 0.03 PT 15.0 H INR 1.30 H pO2 VBG pH VBG pCO2 VBG HCO3 VBG Total CO2 VBG O2 Sat (Calc) VBG Base Excess VBG Potassium Glucose Lactate FiO2 Sodium 142 Potassium 3.6 Chloride 105 Carbon Dioxide 24 Anion Gap 17 BUN 10 Creatinine 0.7 L Est GFR ( Amer) > 60 Est GFR (Non-Af Amer) > 60 Random Glucose 108 Calcium 9.2 Total Bilirubin 0.4 AST 17 ALT 29 Alkaline Phosphatase 87 Total Protein 7.3 Albumin 4.2 Globulin 3.1 Albumin/Globulin Ratio 1.3 Venous Blood Potassium 08/23/17 07:30 WBC RBC Hgb Hct MCV MCH MCHC RDW Plt Count MPV Gran % Lymph % (Auto) [place] % (Auto) Eos % (Auto) Baso % (Auto) Gran # Lymph # (Auto) [place] # (Auto) Eos # (Auto) Baso # (Auto) PT INR pO2 77 H VBG pH 7.39 VBG pCO2 42.0 VBG HCO3 25.4 VBG Total CO2 26.7 VBG O2 Sat (Calc) 97.7 H VBG Base Excess 0.3 VBG Potassium 3.3 L Glucose 109 Lactate 0.6 L FiO2 21.0 Sodium 138.0 Potassium Chloride 108.0 H Carbon Dioxide Anion Gap BUN Creatinine Est GFR ( Amer) Est GFR (Non-Af Amer) Random Glucose Calcium Total Bilirubin AST ALT Alkaline Phosphatase Total Protein Albumin Globulin Albumin/Globulin Ratio Venous Blood Potassium 3.3 L Assessment & Plan - Assessment and Plan (Free Text) Plan: Assessment Sepsis due to left leg non-purulent cellulitis in a patient exposed to a hot tub cellulitis of the left leg in 2015 morbid obesity with BMI 41 Plan Started Zyvox and Cefepime because of the hot tub exposure; follow up blood cx will check HIV test will monitor clinical response
[2017-08-23] MEDS: Cefepime 1gm in NS 100ml 1 GM/100 ML BAG IVPB SCH ×2 (14:22→21:25)
[2017-08-23 23:07] VITALS: RESP 20
[2017-08-24] MEDS: Cefepime 1gm in NS 100ml 1 GM/100 ML BAG IVPB SCH ×2 (05:57→14:09)
[2017-08-24] MEDS ORDERED: Pantoprazole 40 mg EC Tab PO SCH (06:00)
[2017-08-24 07:35] LABS: BASO # 0.04 K/mm3 (0.0-2.0); BASO % 0.4 % (0.0-3.0); EOS # 0.2 (0.0-0.7); EOS % 2.5 % (1.5-5.0); GRAN # 6.68 (1.4-6.5); GRAN % 71.3 % (50.0-68.0); HEMOGLOBIN 13.8 g/dL (14.0-18.0); LYMPH # 1.6 (1.2-3.4); LYMPH % 17.3 % (22.0-35.0); MEAN CORPUSCULAR HEMOGLOBIN 30.6 pg (25.0-35.0); MEAN CORPUSCULAR HGB CONC 34.8 g/dl (31.0-37.0); MEAN PLATELET VOLUME 11.5 fl (7.0-11.0); MONO # 0.8 (0.1-0.6); MONO % 8.5 % (1.0-6.0); RBC 4.51 10^6/uL (3.5-6.1); RED CELL DISTRIBUTION WIDTH 13.8 % (11.5-14.5); WHITE BLOOD COUNT 9.4 10^3/ul (4.5-11.0)
[2017-08-24 07:36] VITALS: BP 120/78; PULSE 74; TEMP 98.3; O2SAT 98
[2017-08-24 07:48] LABS: ALB/GLOB RATIO 1.2 (1.1-1.8); ALT/SGPT 34 U/L (7-56); AST/SGOT 20 U/L (17-59); BLOOD UREA NITROGEN 7 mg/dL (7-21); CALCIUM 9.2 mg/dL (8.4-10.5); GFR AFRICAN-AMERICAN > 60; GFR NON-AFRICAN AMERICAN > 60
--- NOTE | 2017-08-24 11:21 | CP.PCM.PN ---
Subjective - Date & Time of Evaluation Date of Evaluation: 08/24/17 Time of Evaluation: 11:18 - Subjective Subjective: Patient seen and evaluated bedside. No acute issues overnight. Patient says he feels his leg is getting better. Patient denies fever, chills, abdominal pain, chest pain, SOB or any other complaints at this time. Objective - Vital Signs/Intake and Output Vital Signs (last 24 hours): Temp Pulse Resp BP Pulse Ox 98.3 F 74 20 120/78 98 08/24/17 07:35 08/24/17 07:35 08/24/17 07:35 08/24/17 07:35 08/24/17 07:35 Intake and Output: 08/24/17 08/24/17 06:59 18:59 Intake Total 180 Balance 180 - Medications Medications: Current Medications Heparin Sodium (Porcine) (Heparin) 5,000 units SC Q12 AHMET PRN Reason: Protocol Last Admin: 08/24/17 10:04 Dose: 5,000 units Cefepime HCl (Maxipime 1gm) 1 gm in 100 mls @ 100 mls/hr IVPB Q8 AHMET PRN Reason: Protocol Stop: 08/30/17 14:01 Last Admin: 08/24/17 05:57 Dose: 100 mls/hr Linezolid (Zyvox) 600 mg PO BID AHMET PRN Reason: Protocol Stop: 09/02/17 10:01 Last Admin: 08/24/17 10:10 Dose: 600 mg Pantoprazole Sodium (Protonix Ec Tab) 40 mg PO 0600 [facility] Last Admin: 08/24/17 05:58 Dose: 40 mg - Labs Labs: 08/24/17 07:00 08/24/17 07:00 PT 15.0 SECONDS (9.4-12.5) H 08/23/17 06:54 INR 1.30 (0.93-1.08) H 08/23/17 06:54 - Constitutional Appears: Non-toxic, No Acute Distress - Head Exam Head Exam: ATRAUMATIC, NORMAL INSPECTION, NORMOCEPHALIC - Eye Exam Eye Exam: EOMI, Normal appearance - ENT Exam ENT Exam: Mucous Membranes Moist - Respiratory Exam Respiratory Exam: Clear to Ausculation Bilateral, NORMAL BREATHING PATTERN - Cardiovascular Exam Cardiovascular Exam: REGULAR RHYTHM, +S1, +S2 - GI/Abdominal Exam GI & Abdominal Exam: Soft. absent: Tenderness - Extremities Exam Extremities Exam: Tenderness Additional comments: erythema on anterior aspect of left lower leg - Neurological Exam Neurological Exam: Alert, Awake, Oriented x3 - Skin Skin Exam: Rash Assessment and Plan - Assessment and Plan (Free Text) Plan: 1. Cellulitis Left Lower Extremity -afebrile -blood cultures, urine cultures no growth yet -ID consulted, follow recs -Cefepime and Linezolid -HIV test negative Prophylaxis -Heparin SC -protonix
--- NOTE | 2017-08-24 13:30 | CP.PCM.DIS ---
<Rio Ramos - Last Filed: 08/24/17 13:27> Provider - Provider Date of Admission: 08/23/17 06:49 Attending physician: Todd Duque MD Consults: ID: Slim Time Spent in preparation of Discharge (in minutes): 75 Hospital Course - Lab Results Lab Results: Micro Results 08/23/17 06:54 Blood-Venous Blood Culture - Preliminary NO GROWTH AFTER 24 HOURS Most Recent Lab Values WBC 9.4 10^3/ul (4.5-11.0) D 08/24/17 07:00 RBC 4.51 10^6/uL (3.5-6.1) 08/24/17 07:00 Hgb 13.8 g/dL (14.0-18.0) L 08/24/17 07:00 Hct 39.7 % (42.0-52.0) L 08/24/17 07:00 MCV 88.0 fl (80.0-105.0) 08/24/17 07:00 MCH 30.6 pg (25.0-35.0) 08/24/17 07:00 MCHC 34.8 g/dl (31.0-37.0) 08/24/17 07:00 RDW 13.8 % (11.5-14.5) 08/24/17 07:00 Plt Count 175 10^3/uL (120.0-450.0) 08/24/17 07:00 MPV 11.5 fl (7.0-11.0) H 08/24/17 07:00 Gran % 71.3 % (50.0-68.0) H 08/24/17 07:00 Lymph % (Auto) 17.3 % (22.0-35.0) L 08/24/17 07:00 [place] % (Auto) 8.5 % (1.0-6.0) H 08/24/17 07:00 Eos % (Auto) 2.5 % (1.5-5.0) 08/24/17 07:00 Baso % (Auto) 0.4 % (0.0-3.0) 08/24/17 07:00 Gran # 6.68 (1.4-6.5) H 08/24/17 07:00 Lymph # (Auto) 1.6 (1.2-3.4) 08/24/17 07:00 [place] # (Auto) 0.8 (0.1-0.6) H 08/24/17 07:00 Eos # (Auto) 0.2 (0.0-0.7) 08/24/17 07:00 Baso # (Auto) 0.04 K/mm3 (0.0-2.0) 08/24/17 07:00 PT 15.0 SECONDS (9.4-12.5) H 08/23/17 06:54 INR 1.30 (0.93-1.08) H 08/23/17 06:54 pO2 77 mm/Hg (30-55) H 08/23/17 07:30 VBG pH 7.39 (7.32-7.43) 08/23/17 07:30 VBG pCO2 42.0 (40-60) 08/23/17 07:30 VBG HCO3 25.4 mmol/l (21-28) 08/23/17 07:30 VBG Total CO2 26.7 mmol.L (22-28) 08/23/17 07:30 VBG O2 Sat (Calc) 97.7 % (40-65) H 08/23/17 07:30 VBG Base Excess 0.3 mmol/L (0.0-2.0) 08/23/17 07:30 VBG Potassium 3.3 mmol/L (3.6-5.2) L 08/23/17 07:30 Sodium 138.0 mmol/L (132-148) 08/23/17 07:30 Chloride 108.0 mmol/L (98-107) H 08/23/17 07:30 Glucose 109 mg/dl (75-110) 08/23/17 07:30 Lactate 0.6 mmol/L (0.7-2.1) L 08/23/17 07:30 FiO2 21.0 % 08/23/17 07:30 Sodium 145 mmol/L (132-148) 08/24/17 07:00 Potassium 3.7 mmol/L (3.6-5.0) 08/24/17 07:00 Chloride 107 mmol/L (98-107) 08/24/17 07:00 Carbon Dioxide 24 mmol/L (21-33) 08/24/17 07:00 Anion Gap 18 (10-20) 08/24/17 07:00 BUN 7 mg/dL (7-21) 08/24/17 07:00 Creatinine 0.6 mg/dl (0.8-1.5) L 08/24/17 07:00 Est GFR ( Amer) > 60 08/24/17 07:00 Est GFR (Non-Af Amer) > 60 08/24/17 07:00 Random Glucose 106 mg/dL (70-110) 08/24/17 07:00 Calcium 9.2 mg/dL (8.4-10.5) 08/24/17 07:00 Total Bilirubin 0.4 mg/dL (0.2-1.3) 08/24/17 07:00 AST 20 U/L (17-59) 08/24/17 07:00 ALT 34 U/L (7-56) 08/24/17 07:00 Alkaline Phosphatase 87 U/L (38-126) 08/24/17 07:00 Total Protein 7.3 g/dL (5.8-8.3) 08/24/17 07:00 Albumin 4.0 g/dL (3.0-4.8) 08/24/17 07:00 Globulin 3.3 gm/dL 08/24/17 07:00 Albumin/Globulin Ratio 1.2 (1.1-1.8) 08/24/17 07:00 Venous Blood Potassium 3.3 mmol/L (3.6-5.2) L 08/23/17 07:30 HIV 1&2 Ag/Ab, 4th Gen Nonreactive (Nonreactive) 08/23/17 09:40 - Hospital Course Hospital Course: Patient came in for rash and erythema on anterior aspect of left lower extremity. He was treated for cellulitis and started on antibiotics linezolid and cefepime. Rash improved from yesterday, white count improved. ID cleared patient for discharge with antibiotics to continue. Patient was afebrile entire stay. Discharge Exam - Head Exam Head Exam: ATRAUMATIC, NORMAL INSPECTION, NORMOCEPHALIC - Eye Exam Eye Exam: EOMI, Normal appearance, PERRL - Respiratory Exam Respiratory Exam: NORMAL BREATHING PATTERN - Cardiovascular Exam Cardiovascular Exam: REGULAR RHYTHM, +S1, +S2 - GI/Abdominal Exam GI & Abdominal Exam: Normal Bowel Sounds - Extremities Exam Extremities exam: pedal pulses present Additional comments: erythema on anterior of left lower leg - Neurological Exam Neurological exam: Alert, Oriented x3 Discharge Plan - Discharge Medications Prescriptions: Amoxicillin/Clavulanate [Augmentin 875 MG-125 MG] 1 tab PO BID #14 tab Doxycycline Hyclate 100 mg PO DAILY #7 capsule - Follow Up Plan Condition: GOOD Disposition: HOME/ ROUTINE Instructions: Cellulitis (Skin Infection), Adult (DC) Additional Instructions: You are being discharged to home. Please follow up with your primary care physician. You are leaving with a prescription for Doxycyline and Augmentin. Please take all oral antibiotics until they are finished. Do not save any pills and do not share with anyone else. If your symptoms return or worsen, please return to the Emergency Room. <Todd Duque - Last Filed: 08/24/17 15:18> Provider - Provider Date of Admission: 08/23/17 06:49 Attending physician: Todd Duque MD Hospital Course - Lab Results Lab Results: Micro Results 08/23/17 06:54 Blood-Venous Blood Culture - Preliminary NO GROWTH AFTER 24 HOURS Most Recent Lab Values WBC 9.4 10^3/ul (4.5-11.0) D 08/24/17 07:00 RBC 4.51 10^6/uL (3.5-6.1) 08/24/17 07:00 Hgb 13.8 g/dL (14.0-18.0) L 08/24/17 07:00 Hct 39.7 % (42.0-52.0) L 08/24/17 07:00 MCV 88.0 fl (80.0-105.0) 08/24/17 07:00 MCH 30.6 pg (25.0-35.0) 08/24/17 07:00 MCHC 34.8 g/dl (31.0-37.0) 08/24/17 07:00 RDW 13.8 % (11.5-14.5) 08/24/17 07:00 Plt Count 175 10^3/uL (120.0-450.0) 08/24/17 07:00 MPV 11.5 fl (7.0-11.0) H 08/24/17 07:00 Gran % 71.3 % (50.0-68.0) H 08/24/17 07:00 Lymph % (Auto) 17.3 % (22.0-35.0) L 08/24/17 07:00 [place] % (Auto) 8.5 % (1.0-6.0) H 08/24/17 07:00 Eos % (Auto) 2.5 % (1.5-5.0) 08/24/17 07:00 Baso % (Auto) 0.4 % (0.0-3.0) 08/24/17 07:00 Gran # 6.68 (1.4-6.5) H 08/24/17 07:00 Lymph # (Auto) 1.6 (1.2-3.4) 08/24/17 07:00 [place] # (Auto) 0.8 (0.1-0.6) H 08/24/17 07:00 Eos # (Auto) 0.2 (0.0-0.7) 08/24/17 07:00 Baso # (Auto) 0.04 K/mm3 (0.0-2.0) 08/24/17 07:00 PT 15.0 SECONDS (9.4-12.5) H 08/23/17 06:54 INR 1.30 (0.93-1.08) H 08/23/17 06:54 pO2 77 mm/Hg (30-55) H 08/23/17 07:30 VBG pH 7.39 (7.32-7.43) 08/23/17 07:30 VBG pCO2 42.0 (40-60) 08/23/17 07:30 VBG HCO3 25.4 mmol/l (21-28) 08/23/17 07:30 VBG Total CO2 26.7 mmol.L (22-28) 08/23/17 07:30 VBG O2 Sat (Calc) 97.7 % (40-65) H 08/23/17 07:30 VBG Base Excess 0.3 mmol/L (0.0-2.0) 08/23/17 07:30 VBG Potassium 3.3 mmol/L (3.6-5.2) L 08/23/17 07:30 Sodium 138.0 mmol/L (132-148) 08/23/17 07:30 Chloride 108.0 mmol/L (98-107) H 08/23/17 07:30 Glucose 109 mg/dl (75-110) 08/23/17 07:30 Lactate 0.6 mmol/L (0.7-2.1) L 08/23/17 07:30 FiO2 21.0 % 08/23/17 07:30 Sodium 145 mmol/L (132-148) 08/24/17 07:00 Potassium 3.7 mmol/L (3.6-5.0) 08/24/17 07:00 Chloride 107 mmol/L (98-107) 08/24/17 07:00 Carbon Dioxide 24 mmol/L (21-33) 08/24/17 07:00 Anion Gap 18 (10-20) 08/24/17 07:00 BUN 7 mg/dL (7-21) 08/24/17 07:00 Creatinine 0.6 mg/dl (0.8-1.5) L 08/24/17 07:00 Est GFR ( Amer) > 60 08/24/17 07:00 Est GFR (Non-Af Amer) > 60 08/24/17 07:00 Random Glucose 106 mg/dL (70-110) 08/24/17 07:00 Calcium 9.2 mg/dL (8.4-10.5) 08/24/17 07:00 Total Bilirubin 0.4 mg/dL (0.2-1.3) 08/24/17 07:00 AST 20 U/L (17-59) 08/24/17 07:00 ALT 34 U/L (7-56) 08/24/17 07:00 Alkaline Phosphatase 87 U/L (38-126) 08/24/17 07:00 Total Protein 7.3 g/dL (5.8-8.3) 08/24/17 07:00 Albumin 4.0 g/dL (3.0-4.8) 08/24/17 07:00 Globulin 3.3 gm/dL 08/24/17 07:00 Albumin/Globulin Ratio 1.2 (1.1-1.8) 08/24/17 07:00 Venous Blood Potassium 3.3 mmol/L (3.6-5.2) L 08/23/17 07:30 HIV 1&2 Ag/Ab, 4th Gen Nonreactive (Nonreactive) 08/23/17 09:40 Attending/Attestation - Attestation I have personally seen and examined this patient.: Yes I have fully participated in the care of the patient.: Yes I have reviewed all pertinent clinical information, including history, physical exam and plan: Yes Notes (Text): 08/24/17 15:14 32 year old male who was admitted with left leg cellulitis. He was started on iv antibiotics and seen by ID. The following day cellulitis and leukocytosis improved. ID suggested po doxycycline and augmentin. Patient is discharged home on po antibiotics. Follow up with pmd. Counselled on weight loss, diet and exercise for obesity. Todd Duque MD Hospitalist.
--- NOTE | 2017-08-24 13:57 | PN ---
DATE: 08/24/2017 SUBJECTIVE: The patient is in bed, in no acute distress, nontoxic. The patient states his leg is much improved. He is ready to go home. OBJECTIVE: VITAL SIGNS: On exam, temperature is 98, blood pressure is 130/90, respiratory rate of 18, heart rate of 77. HEENT: Examination is unremarkable. NECK: Supple. LUNGS: Have decreased breath sounds. HEART: Normal S1, S2. ABDOMEN: Soft, nontender. EXTREMITIES: On examination of legs, it is much improved. DATA: Laboratory examination reveals a white count is down from 12.5 to 9.4; hemoglobin of 13, platelets of 175. Coagulation is noted. BUN of 7, creatinine of 0.6. Microbiology reveals the blood cultures have no growth. MEDICATIONS: The patient is on Zyvox and cefepime. ASSESSMENT AND PLAN: This is a 32-year-old male was admitted with past medical history of left leg cellulitis, morbid obesity, body mass index of 41. He is admitted with left leg cellulitis and leukocytosis. With this greatly improved, the patient wants to be discharged today.. We will switch to p.o. Zyvox. If the patient is ready for discharge, may use p.o. Zyvox; however, if unable to afford Zyvox, may use p.o. doxycycline and p.o. Augmentin. The patient is also on Maxipime, p.o. doxycycline 100 mg b.i.d. with p.o. Augmentin 875 b.i.d., both x5 days. The etiology of this cellulitis is not entirely clear. reveals the HIV test is pending. Geovanny Avitia MD
== END 2017-08-24 14:25 | disposition home or self-care (01) | DRG 603 ==
LOC: ED 05:35 → UNDOADMIN 06:49 → ERH 06:49 → 5RNO 08:37 → ERH 08:37 → 5RNO 08:59 → ERH 08:59 → 5RNO 18:05 → 5RSO 18:05 → UNDODISIN 08-24 14:25
PROVIDERS: ADMIT Internal Medicine; ATTEND Internal Medicine
DX: L03.116 Cellulitis of left lower limb (principal); Z68.41 Body mass index [BMI] 40.0-44.9, adult; D72.829 Elevated white blood cell count, unspecified; E66.01 Morbid (severe) obesity due to excess calories; F12.90 Cannabis use, unspecified, uncomplicated; F17.210 Nicotine dependence, cigarettes, uncomplicated; R40.2412 Glasgow coma scale score 13-15, at arrival to emergency department

== ENCOUNTER 2017-11-12 08:06 | Emergency (ER) | payer MEDICAID, OTHER ==
[2017-11-12 08:06] VITALS: BMI 41.3
[2017-11-12 08:29] VITALS: RESP 18; TEMP 98.5
[2017-11-12] MEDS ORDERED: Naproxen 550 mg Tab PO STA (09:04)
--- NOTE | 2017-11-12 09:04 | ED PDOC ---
Arrival/HPI - History of Present Illness Time/Duration: 1-3 hours, 4-6 hours Symptom Onset: Sudden Symptom Course: Unchanged Quality: Burning Severity Level: 4 Activities at Onset: Rest Context: Walking - General Chief Complaint: Lower Extremity Problem/Injury Time Seen by Provider: 11/12/17 08:46 - History of Present Illness Narrative History of Present Illness (Text): 11/12/17 09:00 PGY-[address] Pearl 32 year old male with PMHx cellulitis presents with acute onset R ankle pain. Patient states that he woke up this morning with severe burning pain on his L ankle. He does not recall any trauma or injury. Patient does report he has been working out frequently including weights and cardio and was running yesterday. 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 Pt denies any fevers or chills, any radiation of pain into legs, any numbness or tingling, back or neck pain, or calf tenderness. Denies recent antibiotic use. Pt is able to weight bear but walking increases pain. He states the pain is a 7.15/10 when walking, 4/10 while laying down. (Bhupendra Shirley) Past Medical History - Provider Review Nursing Documentation Reviewed: Yes - Past History Past History: No Previous - Infectious Disease Hx of Infectious Diseases: None - Tetanus Immunization Tetanus Immunization: Unknown - Past Medical History Past Medical History: No Previous - Cardiac Hx Cardiac Disorders: No - Pulmonary Hx Respiratory Disorders: No - Neurological Hx Neurological Disorder: No - HEENT Hx HEENT Disorder: No - Renal Hx Renal Disorder: No - Endocrine/Metabolic Hx Endocrine Disorders: No - Hematological/Oncological Hx Blood Disorders: No - Integumentary Hx Dermatological Disorder: No - Musculoskeletal/Rheumatological Hx Musculoskeletal Disorders: Yes (R knee sx) Hx Falls: No - Gastrointestinal Hx Gastrointestinal Disorders: No - Genitourinary/Gynecological Hx Genitourinary Disorders: No - Psychiatric Hx Psychophysiologic Disorder: No Hx Substance Use: Yes (marijuana) - Surgical History Hx Orthopedic Surgery: Yes (hien acl knees) Other/Comment: recent miniscus/acl done in september 2015 - Anesthesia Hx Anesthesia: Yes Hx Anesthesia Reactions: No - Suicidal Assessment Feels Threatened In Home Enviroment: No Family/Social History - Physician Review Nursing Documentation Reviewed: Yes Family/Social History: No Known Family HX Smoking Status: Light Smoker < 10 Cigarettes Daily Hx Alcohol Use: Yes (occasional) Hx Substance Use: Yes (marijuana) Substance used: "I SMOKE WEED ONCE A MONTH" Hx Substance Use Treatment: No Allergies/Home Meds Allergies/Adverse Reactions: Allergies No Known Allergies Allergy (Verified 08/23/17 06:14) Home Medications: Home Meds Medication Instructions Recorded Confirmed No Known Home Med 11/12/17 11/12/17 Review of Systems - Review of Systems Constitutional: Normal. absent: Fatigue, Fevers Eyes: Normal ENT: Normal. absent: Sore Throat, Rhinorrhea Respiratory: Normal. absent: SOB, Cough Cardiovascular: Normal. absent: Chest Pain, Palpitations Gastrointestinal: Normal. absent: Abdominal Pain, Nausea, Vomiting Musculoskeletal: Other (+R ankle pain). absent: Back Pain, Neck Pain Skin: absent: Rash, Pruritis Neurological: absent: Headache, Dizziness Endocrine: absent: Polyuria, Polydipsia Physical Exam Vital Signs Reviewed: Yes Temperature: Afebrile Blood Pressure: Normal Pulse: Regular Respiratory Rate: Normal Appearance: Positive for: Well-Appearing, Non-Toxic Pain Distress: Mild Mental Status: Positive for: Alert and Oriented X 3 - Systems Exam Head: Present: Atraumatic, Normocephalic Pupils: Present: PERRL Extroacular Muscles: Present: EOMI Conjunctiva: Present: Normal Mouth: Present: Moist Mucous Membranes Pharnyx: Present: Normal. No: ERYTHEMA, EXUDATE Nose (External): Present: Atraumatic. No: Abrasion, Contusion Neck: Present: Normal Range of Motion. No: JVD Respiratory/Chest: Present: Clear to Auscultation, Good Air Exchange. No: Respiratory Distress, Accessory Muscle Use, Wheezes, Rhonchi Cardiovascular: Present: Regular Rate and Rhythm, Normal S1, S2. No: Murmurs Abdomen: Present: Normal Bowel Sounds. No: Tenderness, Distention Upper Extremity: Present: Normal ROM, NORMAL PULSES. No: Cyanosis, Edema, Swelling, Erythema, Temperature Abnormalties, Deformity Lower Extremity: Present: NORMAL PULSES, Normal ROM, Tenderness (+Tender to palpation over R achilles), Neurovascularly Intact, Capillary Refill < 2 s, Other (No temperature changes, normal pulses present b/l, no sudomotor changes, no paresthesias; NEGATIVE Arteaga Test). No: Edema, CALF TENDERNESS, Cyanosis , Swelling, Erythema, Deformity, Temperature Abnormalties Neurological: Present: GCS=15, CN II-XII Intact, Speech Normal Skin: Present: Warm, Dry, Normal Color. No: Rashes Psychiatric: Present: Alert, Oriented x 3 Vital Signs Temp Pulse Resp BP Pulse Ox 11/12/17 12:13 99 11/12/17 12:11 82 18 123/78 99 11/12/17 11:26 89 18 126/80 100 11/12/17 08:25 98.5 F 98 H 18 125/84 99 Medical Decision Making - RAD Interpretation Cue Selector: Radiologist ED Course and Treatment: Patient Seen With Resident: In agreement with resident note which contains more details about the patient. Patient was seen and evaluated with resident. Came up with plan and treatment together. (Carlos Pearl) 1) R Ankle Pain - Achilles tendinitis; rule out fracture, tendon tear * 3 view foot and ankle X-rays * Naproxen 550 mg PO STAT for pain/inflammation * Arteaga test negative 11/12/17 09:30 (Bhupendra Shirley) - RAD Interpretation Narrative RAD Interpretations (Text): 11/12/17 12:01 Foot and ankle X-rays show no evidence of fracture or acute injury (Bhupendra Shirley) Radiology Orders: 11/12/17 09:04 ANKLE RIGHT 3 VIEWS ROUTINE [RAD] Stat FOOT RIGHT 3 VIEWS ROUTINE [RAD] Stat - Medication Orders Current Medication Orders: Discontinued Medications Naproxen (Anaprox Ds) 550 mg PO BID STA Stop: 11/12/17 09:05 Last Admin: 11/12/17 09:27 Dose: 550 mg Disposition/Present on Arrival - Present on Arrival Any Indicators Present on Arrival: No History of DVT/PE: No History of Uncontrolled Diabetes: No Urinary Catheter: No History of Decub. Ulcer: No History Surgical Site Infection Following: None - Disposition Have Diagnosis and Disposition been Completed?: Yes Disposition Time: 12:03 - Disposition Diagnosis: Foot pain, right, Tendinitis Disposition: HOME/ ROUTINE Condition: IMPROVED Discharge Instructions (ExitCare): Tendinopathy, Tendinopathy (DC) Additional Instructions: SEMAJ MUELLER, thank you for letting us take care of you today. Your provider was Carlos Pearl and you were treated for foot pain/tendinitis. The emergency medical care you received today was directed at your acute symptoms. If you were prescribed any medication, please fill it and take as directed. It may take several days for your symptoms to resolve. Return to the Emergency Department if your symptoms worsen, do not improve, or if you have any other problems. Please contact your doctor or call one of the physicians/clinics you have been referred to that are listed on the Patient Visit Information form that is included in your discharge packet. Bring any paperwork you were given at discharge with you along with any medications you are taking to your follow up visit. Our treatment cannot replace ongoing medical care by a primary care provider outside of the emergency department. Thank you for allowing the [facility] team to be part of your care today. If you had an X-Ray or CT scan: A Radiologist will review the ED reading if any change in treatment is needed we will contact you. If you had a blood, urine, or wound culture: It will take several days for the results, if any change in treatment is needed we will contact you. If you had an STI test: It will take 48 hours for the results. Please call after 1 week if you have not heard back. Referrals: Jerry Rothman MD [Primary Care Provider] - Follow up with primary Forms: [facility] (Maori), WORK NOTE
--- NOTE | 2017-11-12 11:37 | RAD ---
Date of service: 11/12/2017 PROCEDURE: Right Ankle Radiographs. HISTORY: ankle pain COMPARISON: None FINDINGS: BONES: Bone alignment and mineralization are normal. There is no acute displaced fracture or bone destruction. JOINTS: Mild degenerative osteoarthrosis in the tibiotalar joint. Ankle mortise maintained. Talar dome intact SOFT TISSUES: There are soft tissue calcifications likely phleboliths in the medial soft tissues. OTHER FINDINGS: None. IMPRESSION: No acute fracture or dislocation.
--- NOTE | 2017-11-12 11:49 | RAD ---
Date of service: 11/12/2017 PROCEDURE: Right Foot Radiographs. HISTORY: ankle pain COMPARISON: None. FINDINGS: BONES: Bone alignment and mineralization are normal. There is no acute displaced fracture or bone destruction. JOINTS: There is premature degenerative osteoarthrosis in the 1st MTP joint, talonavicular and tibiotalar joints with marginal osteophytes and joint space narrowing. SOFT TISSUES: Normal. OTHER FINDINGS: None. 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
[2017-11-12 12:13] VITALS: BP 123/78; PULSE 82; O2SAT 99
== END 2017-11-12 12:13 | disposition home or self-care (01) ==
LOC: ED 08:06
DX: M79.671 Pain in right foot (principal); M76.61 Achilles tendinitis, right leg

== ENCOUNTER 2017-12-06 00:34 | Emergency (ER) | payer MEDICAID, OTHER ==
[2017-12-06 00:35] VITALS: BMI 41.3
[2017-12-06 00:46] VITALS: RESP 18; O2SAT 97
--- NOTE | 2017-12-06 00:51 | ED PDOC ---
Arrival/HPI - General Chief Complaint: Finger,Hand,&Wrist Time Seen by Provider: 12/06/17 00:49 Historian: Patient - History of Present Illness Narrative History of Present Illness (Text): 12/06/17 00:53 32-year-old male presents today with a four-day history of left wrist pain. Patient denies any trauma or injury. Patient states he did not take any medications for pain at home but states he smoked marijuana today and attempt to alleviate the pain. Patient denies numbness weakness or tingling in the extremity but is complaining of pain with range of motion of the wrist. Patient states he has a history of gout but has never had a gout flare in the wrist before. Patient denies fevers or chills. Denies erythema. No other complaints Past Medical History - Provider Review Nursing Documentation Reviewed: Yes - Travel History Have you recently traveled outside [place] w/in the past 3 mons?: No - Past History Past History: No Previous - Infectious Disease Hx of Infectious Diseases: None - Tetanus Immunization Tetanus Immunization: Unknown - Past Medical History Past Medical History: No Previous - Cardiac Hx Cardiac Disorders: No - Pulmonary Hx Respiratory Disorders: No - Neurological Hx Neurological Disorder: No - HEENT Hx HEENT Disorder: No - Renal Hx Renal Disorder: No - Endocrine/Metabolic Hx Endocrine Disorders: No - Hematological/Oncological Hx Blood Disorders: No - Integumentary Hx Dermatological Disorder: No - Musculoskeletal/Rheumatological Hx Musculoskeletal Disorders: Yes (R knee sx) Hx Falls: No - Gastrointestinal Hx Gastrointestinal Disorders: No - Genitourinary/Gynecological Hx Genitourinary Disorders: No - Psychiatric Hx Psychophysiologic Disorder: No Hx Substance Use: Yes (marijuana) - Surgical History Hx Orthopedic Surgery: Yes (hien acl knees) Other/Comment: recent miniscus/acl done in september 2015 - Anesthesia Hx Anesthesia: Yes Hx Anesthesia Reactions: No Hx Malignant Hyperthermia: No - Suicidal Assessment Feels Threatened In Home Enviroment: No Family/Social History - Physician Review Nursing Documentation Reviewed: Yes Family/Social History: Unknown Family HX Smoking Status: Light Smoker < 10 Cigarettes Daily Hx Alcohol Use: Yes (occasional) Hx Substance Use: Yes (marijuana) Substance used: just used a few minutes ago Hx Substance Use Treatment: No Allergies/Home Meds Allergies/Adverse Reactions: Allergies No Known Allergies Allergy (Verified 12/06/17 00:46) Review of Systems - Review of Systems Constitutional: absent: Fatigue, Fevers Respiratory: absent: SOB, Cough Cardiovascular: absent: Chest Pain, Palpitations Gastrointestinal: absent: Abdominal Pain, Nausea, Vomiting Musculoskeletal: Arthralgias (left wrist pain). absent: Back Pain, Neck Pain Skin: absent: Rash, Pruritis Neurological: absent: Headache, Dizziness Psychiatric: absent: Anxiety, Depression Physical Exam Vital Signs Reviewed: Yes Vital Signs Temp Pulse Resp BP Pulse Ox 12/06/17 00:42 98.3 F 68 18 131/69 97 Temperature: Afebrile Blood Pressure: Normal Pulse: Regular Respiratory Rate: Normal Appearance: Positive for: Well-Appearing, Non-Toxic, Comfortable Pain Distress: None Mental Status: Positive for: Alert and Oriented X 3 - Systems Exam Head: Present: Atraumatic Respiratory/Chest: Present: Clear to Auscultation Cardiovascular: Present: Regular Rate and Rhythm Upper Extremity: Present: Normal ROM, NORMAL PULSES, Tenderness, Capillary Refill < 2s. No: Swelling, Erythema, Neurovascularly Intact, Deformity Neurological: Present: GCS=15, Speech Normal Skin: Present: Warm, Dry, Normal Color. No: Rashes Psychiatric: Present: Alert, Oriented x 3 Medical Decision Making ED Course and Treatment: 12/06/17 01:02 Patient nontoxic well-appearing in no distress with stable vital signs X-rays of the left wrist; no fracture toradol IM Patient placed in volar splint pt reassessment; pt feeling better after toradol; full rom of wrist; no signs of infection. no erythema. no edema. i advised the patient that although the xrays show no fracture; there is still a possibility for ligamentous or tendon injury the patient must see the orthopedist for further evaluation. I discussed all results with patient advised to followup with the orthopedist for the next 2 days. Return if symptoms worsen persist or new symptoms develop Patient verbalizes understanding of discharge instructions and need for immediate followup. all aspects of this case were discussed the attending of record. Impression: wrist pain Motrin every 6 hours as needed for pain Rest, ice, compression, elevation Followup with the orthopedist within the next 2 days Followup with primary care physician within the next 2 days Return if any other concerning symptoms develop - RAD Interpretation Radiology Orders: 12/06/17 00:49 WRIST, LEFT 3 VIEWS [RAD] Stat - Medication Orders Current Medication Orders: Discontinued Medications Ketorolac Tromethamine (Toradol) 60 mg IM STAT STA Stop: 12/06/17 00:50 Last Admin: 12/06/17 01:02 Dose: 60 mg MAR Pain Assessment Document 12/06/17 01:02 GMD (Rec: 12/06/17 01:02 [facility] [id number]) Pain Reassessment Is this a pain reassessment? No IM Administration Charges Document 12/06/17 01:02 GMD (Rec: 12/06/17 01:02 D [id number]) Injection Site MAR Injection Site Left Deltoid Charges for Administration # of IM Administrations 1 Disposition/Present on Arrival - Present on Arrival Any Indicators Present on Arrival: No History of DVT/PE: No History of Uncontrolled Diabetes: No Urinary Catheter: No History of Decub. Ulcer: No History Surgical Site Infection Following: None - Disposition Have Diagnosis and Disposition been Completed?: Yes Diagnosis: Wrist pain Disposition: HOME/ ROUTINE Disposition Time: 01:03 Patient Plan: Discharge Patient Problems: Current Active Problems Problem Status Onset Wrist pain Acute Condition: GOOD Additional Instructions: Motrin every 6 hours as needed for pain Rest, ice, compression, elevation Followup with the orthopedist within the next 2 days Followup with primary care physician within the next 2 days Return if any other concerning symptoms develop Prescriptions: Ibuprofen [Motrin] 600 mg PO Q6H PRN #20 tab PRN Reason: pain/fever reduction Referrals: [facility] [Outside] - Follow up with primary Yunier Cee MD [Staff Provider] - Follow up with primary Becky Farrell MD [Medical Doctor] - Follow up with primary [facility] [Outside] - Follow up with primary Forms: [employer] [facility] (Kiswahili), WORK NOTE
[2017-12-06 01:59] VITALS: BP 128/73; PULSE 73; TEMP 97.9
--- NOTE | 2017-12-06 08:38 | RAD ---
Date of service: 12/06/2017 PROCEDURE: Left Wrist Radiographs. HISTORY: wrist pain COMPARISON: 08/29/2016 FINDINGS: BONES: No acute fracture. There is an old fracture of the ulnar styloid JOINTS: Normal. No dislocation. SOFT TISSUES: Normal. OTHER FINDINGS: None. IMPRESSION: No acute findings
== END 2017-12-06 02:00 | disposition home or self-care (01) ==
LOC: ED 00:34
DX: M25.532 Pain in left wrist (principal)
CPT/HCPCS: 73110; 96372; 99284; J1885